=== PATIENT | female | born 1985 | race Caucasian/White ===

== ENCOUNTER → 2019-03-21 | Outpatient (CLI) | payer BC ==
[~2019-03-21] MED LIST: AMOX500 PO; CIPR500 PO; CRUTCH2 USE; CYCL10; CYCL10 PO; HYDACE5 PO; METR500 PO; NAPR500 PO; OXYACE5T PO; PRED20 PO; PROM25 PO; PROP10 PO; SILSUL1TC TOP
[2019-03-25 15:07] LABS: HPV 16 Negative (Negative); HPV 18 Negative (Negative); HPV OTHER HR TYPES Negative (Negative)
== END | disposition home or self-care (01) ==
LOC: LAB SHORT 11:30 → LAB 11:30
PROVIDERS: Family Medicine
DX: Z01.419 Encounter for gynecological examination (general) (routine) without abnormal findings (principal)
CPT/HCPCS: 87624; G0145